=== PATIENT | female | born 1975 | race American Indian/Alaskan Native ===

== ENCOUNTER 2018-11-17 20:17 | Emergency (ER) | payer OTHER ==
--- NOTE | 2018-11-17 21:15 | Emergency Department Report ---
Chief Complaint: Abdominal Pain Stated Complaint: N/V/ABD POIN Time Seen by Provider: 11/17/18 21:13 - HPI History of Present Illness: pt presents with N/V that began 3-4 days ago states she is having abd cramping no fever no diarrhea no urinary sx no PMHx allergy to morphine no daily meds non smoker occ drinker no drug use MSE screening note: Focused history and physical exam performed. Due to findings the following was ordered: labs, UA, zofran ED Disposition for MSE Condition: Stable Instructions: Abdominal Pain (ED)
[2018-11-17] MEDS ORDERED: ZOFRAN ODT PO ONE (21:16)
[2018-11-17 21:36] LABS: Basophils % (Auto) 0.6 % (0.0-1.8); Eosinophils # (Auto) 0.1 K/mm3 (0.0-0.4); Hematocrit 35.7 % (30.3-42.9); Hemoglobin 11.9 gm/dl (10.1-14.3); Lymphocytes # (Auto) 3.2 K/mm3 (1.2-5.4); Lymphocytes % (Auto) 50.7 % (13.4-35.0); Mean Corpuscular HGB Conc 33 % (30-34); Mean Corpuscular Volume 84 fl (79-97); Monocytes # (Auto) 0.4 K/mm3 (0.0-0.8); Platelet Count 367 K/mm3 (140-440); Red Blood Count 4.24 M/mm3 (3.65-5.03)
[2018-11-17 21:59] LABS: Albumin 3.7 g/dL (3.9-5); Calcium 8.9 mg/dL (8.4-10.2)
[2018-11-17 22:09] LABS: HCG Qualitative,Urine Negative (Negative)
[2018-11-17 22:10] LABS: Bilirubin,Urine NEG (Negative); Blood,Urine NEG (Negative); Color,Urine Yellow (Yellow); Mucus,Urine FEW /HPF; Protein,Urine <15 mg/dL mg/dL (Negative); RBC,Urine < 1.0 /HPF (0.0-6.0)
--- NOTE | 2018-11-18 00:02 | Emergency Department Report ---
ED Abdominal Pain HPI - General Chief Complaint: Abdominal Pain Stated Complaint: N/V/ABD POIN Time Seen by Provider: 11/17/18 21:13 Source: patient Mode of arrival: Ambulatory Limitations: No Limitations - History of Present Illness Initial Comments: Patient is a 43 years old female with no significant past medical history. Patient presented to the ER complaining of left lower quadrant abdominal pain for the last 3-4 days. Patient describes her pain as a fullness associated nausea and vomiting. Patient denied any diarrhea. No dysuria, hematuria, vaginal bleeding or vaginal discharge. No fever or chills. MD Complaint: abdominal pain -: days(s) Location: LLQ Radiation: none Migration to: no migration Severity: moderate Severity scale (0 -10): 4 Quality: cramping, fullness - Related Data Allergies Allergy/AdvReac Type Severity Reaction Status Date / Time morphine Allergy Itching Verified 11/17/18 21:18 ED Review of Systems ROS: Stated complaint: N/V/ABD POIN Other details as noted in HPI Comment: All other systems reviewed and negative Constitutional: denies: chills, fever Respiratory: denies: cough, shortness of breath, SOB with exertion Cardiovascular: denies: chest pain, palpitations Gastrointestinal: abdominal pain, nausea, vomiting. denies: diarrhea, constipation, hematemesis, melena, hematochezia Musculoskeletal: denies: back pain Neurological: denies: headache, weakness, numbness, paresthesias, confusion ED Past Medical Hx - Past Medical History Previous Medical History?: No - Surgical History Past Surgical History?: No - Social History Smoking Status: Never Smoker Substance Use Type: None ED Physical Exam - General Limitations: No Limitations General appearance: alert, in no apparent distress - Head Head exam: Present: atraumatic, normocephalic, normal inspection - Eye Eye exam: Present: normal appearance, PERRL - ENT ENT exam: Present: normal exam, normal orophraynx, mucous membranes moist - Neck Neck exam: Present: normal inspection, full ROM. Absent: tenderness, meningismus, lymphadenopathy, thyromegaly - Respiratory Respiratory exam: Present: normal lung sounds bilaterally. Absent: respiratory distress, wheezes, rales - Cardiovascular Cardiovascular Exam: Present: regular rate, normal rhythm, normal heart sounds - GI/Abdominal GI/Abdominal exam: Present: soft, normal bowel sounds. Absent: distended, tenderness, guarding, rebound, rigid, organomegaly, mass, bruit, pulsatile mass - Extremities Exam Extremities exam: Present: normal inspection, full ROM, normal capillary refill. Absent: pedal edema, calf tenderness - Back Exam Back exam: Present: normal inspection, full ROM. Absent: tenderness, CVA tenderness (R), CVA tenderness (L), muscle spasm, paraspinal tenderness, vertebral tenderness - Neurological Exam Neurological exam: Present: alert, oriented X3, CN II-XII intact - Skin Skin exam: Present: warm, intact, normal color ED Course Vital Signs 11/17/18 11/17/18 11/17/18 21:14 23:42 23:43 Temperature 98.7 F Pulse Rate 87 74 Respiratory 16 15 15 Rate Blood Pressure 142/85 Blood Pressure 146/86 [Right] O2 Sat by Pulse 97 97 Oximetry ED Medical Decision Making - Lab Data Result diagrams: 11/17/18 21:21 11/17/18 21:21 - Medical Decision Making Patient is a 43 years old female with no significant past medical history. Patient presented to the ER complaining of left lower quadrant abdominal pain for the last 3-4 days. Patient describes her pain as a fullness associated nausea and vomiting. Patient denied any diarrhea. No dysuria, hematuria, vaginal bleeding or vaginal discharge. No fever or chills. Patient stated that she is feeling much better. Labs reviewed that is unremarkable. CT abdomen and pelvis is negative for acute finding with normal appendix. I advised the patient to follow up with her primary care physician in the next 2-3 days and to return to the ER if symptoms are not improved. Critical care attestation.: If time is entered above; I have spent that time in minutes in the direct care of this critically ill patient, excluding procedure time. ED Disposition Clinical Impression: Abdominal pain Disposition: DC-01 TO HOME OR SELFCARE Is pt being admited?: No Condition: Stable Instructions: Abdominal Pain (ED) Referrals: PIERO RIVAS MD [Primary Care Provider] - 3-5 Days
--- NOTE | 2018-11-18 01:41 | Cat Scan Report ---
PROCEDURE: CT ABDOMEN PELVIS WO CON TECHNIQUE: Computerized axial tomography of the abdomen and pelvis was performed without intravenous contrast. This study is performed without intravascular contrast material and its sensitivity for ab dominal and pelvic pathology, including neoplasms, inflammation, abscess, free fluid, thrombosis, art erial dissection and infarction, is reduced compared with a contrast enhanced study. CT DOSE LENGTH PRODUCT: 1318.3 mGycm HISTORY: ABDOMINAL PAIN COMPARISONS: None . FINDINGS: Visualized lower thorax: No significant abnormality. Liver: Normal size and attenuation. Spleen: Normal size and attenuation. Gallbladder and biliary system: There has been a cholecystectomy.. Pancreas: Normal. Adrenals: Normal. Kidneys: There is no nephrolithiasis or hydronephrosis.. GI tract: There is no bowel obstruction, colitis or enteritis. The appendix is normal. . Lymph nodes and mesentery: Normal. Vasculature: Normal.. Bladder: Normal. Reproductive organs: Uterus and ovaries are unremarkable. Peritoneum: There is no ascites or free air, abscess or adenopathy.. Musculoskeletal structures: No significant abnormality. IMPRESSION: There has been a cholecystectomy.. There is no nephrolithiasis or hydronephrosis.. There is no bowel obstruction, colitis or enteritis. The appendix is normal. . Uterus and ovaries are unremarkable. There is no ascites or free air, abscess or adenopathy.. . This document is electronically signed by Clarence Brooke MD., Nov 18 2018 01:39:18 AM ET
[2018-11-18 02:31] VITALS: BP 138/87
== END 2018-11-18 02:31 | disposition home or self-care (01) ==
LOC: ED 20:17
DX: R10.32 Left lower quadrant pain (principal); R11.2 Nausea with vomiting, unspecified; Z88.5 Allergy status to narcotic agent
CPT/HCPCS: 36415; 74176; 80053; 81001; 81025; 83690; 85025; 99284; Q0162